=== PATIENT | female | born 1990 | race Caucasian/White ===

== ENCOUNTER 2019-09-01 12:30 | Outpatient (RCR) | payer BC, SELFPAY ==
--- NOTE | 2019-08-04 11:21 | PTOPEVAL ---
PHYSICAL THERAPY EVALUATION AND PLAN OF CARE Thank you for referring this patient to [facility]. I recommend Anabell be seen in physical therapy 1-2x/week for up to 4 weeks. Please review, sign, date and return this plan of care CHANTAL. I agree with and certify that the following plan of care is medically necessary. Referring Physician Date Attending Provider: Prem Ashby MD Evaluation Diagnosis right ankle ORIF Onset 06/01/2019 Cause fall Subjective Information Eva is here today 8 weeks Query Text:As Reported By Patient/ after right ankle fracture ( Family distal fibular fracture). She had ORIF of right ankle a week after fall. She is off boot and crutches at this point. Pain Assessment Right Ankle Reported Pain Level 4 Pain Description Aching Pain Frequency Chronic,Intermittent Current Pain Intensity 4 Lowest Pain Intensity 0 Greatest Pain Intensity 5 Pain Aggravating Factors Stair Climbing,Walking,Weight Bearing/Standing Ankle/Foot Range of Motion Right Ankle Dorsiflextion With Knee Extension 2 Range of Motion - Active Ankle Plantarflexion Range of Motion - 59 Active Query Text: Ankle Eversion Range of Motion - Active 8 Ankle Inversion Range of Motion - Active 41 Hip Strength Right Hip Flexion Strength 4 Good Hip Extension Strength 4- Good - Hip Abduction Strength 3+ Fair + Knee Strength Right Knee Flexion Strength 4+ Good + Knee Extension Strength 4+ Good + Ankle Strength Right Ankle Dorsiflexion Strength 4+ Good + Ankle Plantarflexion Strength 4 Good Ankle Eversion Strength 4+ Good + Ankle Inversion Strength 4+ Good + Ankle Strength Comments mild tenderness to PF MMT Palpation Assessment no trigger points noted; non- tender over incision site Balance Assessment Balance Comment SLS: [id number] each side, increased LOB on R Gait Assessment Gait Pattern Trendelenburg Gait Gait Pattern Observed Trunk Lateral Lean - Right Other Gait Observations very mild right lateral trunk lean during gait Stair Climbing Assessment Stair Climbing Assistive Devices None Weight Bearing Status - Left Full Weight Bearing Status - Right Full Technique Alternating Steps Stair Climbing Direction Both Up and Down Stair Climbing Ability Independent Clinical Summary Eva is here today 8 weeks s/p
--- NOTE | 2019-08-18 10:32 | PCPTNOTE ---
Patient did not show up for scheduled appointment this date.
--- NOTE | 2019-08-20 13:53 | PCPTNOTE ---
Patient called & cancelled scheduled appointment this date due to not having a sitter.
--- NOTE | 2019-09-03 13:53 | PCPTNOTE ---
Patient was called & cancelled scheduled appointment this date due to insurance authorization
--- NOTE | 2019-09-08 12:49 | PCPTNOTE ---
Patient did not show up for scheduled appointment this date.
--- NOTE | 2019-09-10 15:00 | PCPTNOTE ---
Patient did not show up for scheduled appointment this date.
== END 2019-09-30 14:40 | disposition home or self-care (01) ==
LOC: ANHPT 12:30
PROVIDERS: Visit Provider Orthopaedic Surgery
DX: S82.61XD Displaced fracture of lateral malleolus of right fibula, subsequent encounter for closed fracture with routine healing (principal)
CPT/HCPCS: 97110; 97140; 97161

== ENCOUNTER 2019-11-23 15:49 | Emergency (ER) | payer BC, OTHER, SELFPAY ==
--- NOTE | 2019-11-23 15:52 | ED.GENADULT ---
HPI - General Adult General Chief complaint: Upper Respiratory Infection Stated complaint: sore throat/cough Time Seen by Provider: 11/23/19 15:51 Source: patient Mode of arrival: ambulatory Limitations: no limitations History of Present Illness HPI narrative: 29-year-old female patient presents to the [facility] with complaints of sore throat and left ear pain x2 days. Denies any fever. Patient states her left ear has been hurting and today noticed a sore throat. Patient states that she does get chronic strep throat last time she had strep throat was last year. Patient denies any runny nose, sneezing or coughing. Patient denies any chest pain or shortness of breath. Denies or breast-feeding Related Data Allergies Allergy/AdvReac Type Severity Reaction Status Date / Time No Known Allergies Allergy Verified 08/26/19 08:42 Review of Systems Review of Systems: Narrative: CONSTITUTIONAL: Denies fever, chills, or sweats. EYES: Denies visual changes, redness, or discharge. ENT: Denies rhinorrhea, congestion, positive sore throat and left otalgia. CARDIOVASCULAR: Denies chest pain, palpitations, or edema. RESPIRATORY: Denies cough or dyspnea. GASTROINTESTINAL: Denies abdominal pain, nausea, vomiting, or diarrhea. GENITOURINARY: Denies dysuria or hematuria. SKIN: Denies rash or itching. MUSCULOSKELETAL: Denies back pain, joint pain, or myalgia. NEUROLOGIC: Denies headache, numbness, or weakness. PSYCHIATRIC: Denies anxiety or depression. [facility] Past Medical History Medical History Ankle fracture, right Surgical History Surgical History Fracture of right ankle, lateral malleolus ORIF May 2019 Family History Family History Father Diabetes mellitus Heart disease Mother Hypertension Cerebrovascular accident Social History Social History Smoking status: Current every day smoker Additional smoking assessment comments: Smoker since 2010; currently a vaper Alcohol intake: current Additional living arrangements comments: With 4 year old son Gender identity (if verbalized by the patient): Female Comments At the time of my signature I agree with nursing past medical history, surgical, social, and family history. There is no relevant family history pertinent to the presenting complaint. Exam Narrative: Exam Narrative: GENERAL: Well-appearing, well-nourished, and in no acute distress. HEAD: Normocephalic, atraumatic. No tenderness noted to frontal or maxillary sinuses on palpation EYES: PERRLA and EOMI. ENT: Nares clear, no rhinorrhea or epistaxis. Mucous membranes moist. Posterior pharynx with 2+ tonsil enlargement and tonsil stones noted to bilateral sides. There is erythema noted. The left ear does appear to have some fluid behind it as well as some bulging and erythema. NECK: Supple. No lymphadenopathy CHEST: Clear to auscultation. No respiratory distress. HEART: Regular rate and rhythm. No murmur heard. Normal peripheral pulses. ABDOMEN: Soft, nontender, nondistended, normal active bowel sounds. EXTREMITIES: Normal range of motion. No edema. SKIN: Warm, dry, no rash. NEURO: No focal deficits. Alert and oriented x3. Course Reevaluation(s) Reevaluation #1: Reevaluated patient. Discussed with her that her strep test today is negative however does appear that she is got an ear infection left ear. Discussed with her that we will discharge her home with some antibiotics for the ear infection that if her strep culture does come back positive the antibiotics that we gave her today should cover that as well. Patient verbalized understanding denies any other questions or concerns at this time. Date: 11/23/19 Time: 16:13 Vital Signs Vital signs: Vital Signs Temperature 36.9 C
[2019-11-23 15:55] VITALS: BP 137/81; PULSE 62; RESP 14; TEMP 36.9; O2SAT 100
== END 2019-11-23 16:19 | disposition home or self-care (01) ==
PROVIDERS: Emergency Provider Nurse Practitioner Family
DX: H66.92 Otitis media, unspecified, left ear (principal); J02.9 Acute pharyngitis, unspecified
CPT/HCPCS: 87081; 87880; 99213; G0463

== ENCOUNTER 2020-01-21 13:32 | Emergency (ER) | payer BC, OTHER, SELFPAY ==
[2020-01-21 13:36] VITALS: BP 129/81; PULSE 87; RESP 20; TEMP 36.9; O2SAT 100
--- NOTE | 2020-01-21 13:38 | ED.URI ---
HPI - URI/Sore Throat General Chief Complaint: Upper Respiratory Infection Stated Complaint: sore throat/ear itching Time Seen by Provider: 01/21/20 13:50 Source: patient and RN notes reviewed Mode of arrival: ambulatory Limitations: no limitations History of Present Illness HPI Narrative: 29-year-old female presents with concern for sore throat, left swollen tonsil, exudate on her tonsils. Reports symptoms started yesterday. Reports in October she had similar symptoms, ear pain and was treated with amoxicillin. She denies fever, body aches, cough, shortness of breath, nasal congestion, rhinorrhea. MD elicited complaint: sore throat Related Data Allergies Allergy/AdvReac Type Severity Reaction Status Date / Time No Known Allergies Allergy Verified 01/21/20 13:45 Review of Systems Review of Systems: Narrative: CONSTITUTIONAL: Denies malaise, chills, sweats, or fever. EYES: Denies visual changes, redness, or discharge. ENT: Denies rhinorrhea, congestion, sinus pain, otalgia. Reports swollen tonsil, sore throat. CARDIOVASCULAR: Denies chest pain, palpitations, or edema. RESPIRATORY: Denies cough or dyspnea. GASTROINTESTINAL: Denies abdominal pain, nausea, vomiting, diarrhea SKIN: Denies rash or itching. MUSCULOSKELETAL: Denies myalgia. NEUROLOGIC: Denies headache. All systems reviewed & are unremarkable except as noted in HPI and below PMFSH Social History Social History Smoking status: Current every day smoker Additional smoking assessment comments: Smoker since 2010; currently a vaper Alcohol intake: current Additional living arrangements comments: With 4 year old son Gender identity (if verbalized by the patient): Female Comments At time of signature, agree with nursing past medical, surgical, social and family history. There is no relevant family history pertinent to the presenting complaint Exam Narrative: Exam Narrative: GENERAL: Well-appearing, well-nourished, and in no acute distress. HEAD: Normocephalic EYES: PERRLA, conjunctivae clear ENT: Nares clear, turbinates clear, no discharge. Mucous membranes moist. TM pearly van with sharp light reflex bilaterally; left tragal tenderness with auditory canal erythema and edema. Oropharynx erythematous without lesions. Tonsils enlarged and with purulent exudate, no drooling, no hoarseness, no trismus, uvula midline. NECK: Supple. No lymphadenopathy CHEST: Clear to auscultation, breath sounds equal. No wheezing, rhonchi, rales, or stridor. No respiratory distress, speaks in full sentences. HEART: Regular rate and rhythm. No murmur heard. SKIN: Warm, dry, no rash. NEURO: Alert and oriented x3. PSYCH: Normal mood and affect Course Course Emergency Course: Patient is aware of diagnosis, understands and agrees to treatment plan. Anticipatory guidance given. Patient agrees to follow-up as directed and is aware of reasons to seek care at the emergency department. Portions of this record may have been created with voice recognition software Vital Signs Vital signs: Vital Signs Temperature 98.4 F 01/21/20 13:36 Pulse Rate 87 01/21/20 13:36 Respiratory Rate 20 01/21/20 13:36 Blood Pressure 129/81 01/21/20 13:36 Pulse Oximetry 100 01/21/20 13:36 Temperature 98.4 F 01/21/20 13:36 Pulse Rate 87 01/21/20 13:36 Respiratory Rate 20 01/21/20 13:36 Blood Pressure 129/81 01/21/20 13:36 Pulse Oximetry 100 01/21/20 13:36 Reviewed. Patient has been instructed to follow up with her primary care provider within the next week regarding her elevated blood pressure today. MDM - URI/Sore Throat MDM Narrative Medical decision making narrative: Differential diagnosis considered: Cano virus, strep pharyngitis, allergic rhinitis, upper respiratory tract infection, sinusitis, rhinosinusitis, nasopharyngitis. viral pharyngitis, otitis media, otitis externa, pneumonia, bronchitis, viral cough syndro
== END 2020-01-21 14:04 | disposition home or self-care (01) ==
PROVIDERS: Emergency Provider Nurse Practitioner
DX: J03.90 Acute tonsillitis, unspecified (principal); H60.502 Unspecified acute noninfective otitis externa, left ear; F17.200 Nicotine dependence, unspecified, uncomplicated
CPT/HCPCS: 87081; 87880; 99213; G0463

== ENCOUNTER 2022-02-06 10:24 | Emergency (ER) | payer OTHER, SELFPAY ==
[2022-02-06 10:36] VITALS: BP 124/80; PULSE 87; RESP 20; TEMP 36.9; O2SAT 100
--- NOTE | 2022-02-06 10:47 | ED.EYEPROB ---
HPI - Eye Problem General Chief complaint: Eye Problems Stated complaint: Eye Swelling Time Seen by Provider: 02/06/22 10:47 Source: patient Mode of arrival: ambulatory Limitations: no limitations History of Present Illness HPI Narrative: 31 y/o female presented for c/o left eye swelling since yesterday. Endorses mild itching and drainage, and states she feels 'soreness.' Denies photophobia, foreign body sensation, or vision changes. Has been taking benadryl and allergy meds for recent URI. Denies current sinus congestion, ear pain, headache, fever/chills. chief complaint: eye pain Related Data Allergies Allergy/AdvReac Type Severity Reaction Status Date / Time No Known Allergies Allergy Verified 02/06/22 10:50 Review of Systems Review of Systems: CONSTITUTIONAL: Denies body aches, fever, chills EYES:Endorses swelling to left eye ENT: Denies rhinorrhea, congestion, sore throat, or otalgia. CARDIOVASCULAR: Denies chest pain, palpitations RESPIRATORY: Denies cough or dyspnea. SKIN: Denies rash, itching, or wounds. MUSCULOSKELETAL: Denies back pain, joint pain, or myalgia. NEUROLOGIC: Denies headache, numbness, tingling, or weakness. All systems reviewed & are unremarkable except as noted in HPI and below PMFSH Past Medical History Medical History Ankle fracture, right Surgical History Surgical History Fracture of right ankle, lateral malleolus ORIF May 2019 Family History Family History Father Diabetes mellitus Heart disease Mother Hypertension Cerebrovascular accident Social History Social History Smoking status: Current every day smoker Additional smoking assessment comments: Smoker since 2010; currently a vaper Alcohol intake: current Alcohol use details: Occasional Additional living arrangements comments: With 4 year old son Gender identity (if verbalized by the patient): Female Comments At time of signature, I have reviewed and agree with nursing past medical, surgical, social and family history unless otherwise noted. Please see nursing chart for further information. There is no relevant family history pertinent to the presenting complaint Exam Narrative: GENERAL: Well-appearing HEAD: Normocephalic, atraumatic. EYES: Mild left lower eye lid swelling; No bruising, conjunctival injection, stye, or discharge. EOMI. Lid eversion showed no foreign body ENT: Mucous membranes pink and moist. No rhinorrhea. TMs normal bilaterally. CHEST: Clear to auscultation. HEART: Regular rate and rhythm. SKIN: Warm, dry, no rash. Normal skin turgor. NEURO: No focal deficits. Alert and oriented x3 Course Course Emergency Course: Patient is aware of diagnosis, understands and agrees to treatment plan. Anticipatory guidance given. Patient agrees to follow-up as directed and is aware of reasons to seek care at the emergency department. Portions of this record may have been created with voice recognition software Level of Care: Express Care Visit Vital Signs Vital signs: Vital Signs Temperature 98.4 F 02/06/22 10:36 Pulse Rate 87 02/06/22 10:36 Respiratory Rate 20 02/06/22 10:36 Blood Pressure 124/80 02/06/22 10:36 Pulse Oximetry 100 02/06/22 10:36 Oxygen Delivery Room Air 02/06/22 10:36 Temperature 98.4 F 02/06/22 10:36 Pulse Rate 87 02/06/22 10:36 Respiratory Rate 20 02/06/22 10:36 Blood Pressure 124/80 02/06/22 10:36 Pulse Oximetry 100 02/06/22 10:36 Oxygen Delivery Room Air 02/06/22 10:36 MDM - Eye Problem MDM Narrative Medical decision making narrative: Advised supportive measures, if sx worsen and she notices drainage she can take the abx, as she does not have a pcp to f/u. signs/symptoms review
== END 2022-02-06 11:05 | disposition home or self-care (01) ==
PROVIDERS: Emergency Provider Nurse Practitioner Family
DX: H05.012 Cellulitis of left orbit (principal); F17.290 Nicotine dependence, other tobacco product, uncomplicated
CPT/HCPCS: 99213; G0463

== ENCOUNTER 2022-08-30 09:55 | Outpatient (CLI) | payer OTHER, SELFPAY ==
--- NOTE | ~2022-08-30 | US_ITS ---
EXAMINATION: US pelvic complete w TV DATE: 08/30/2022 10:40 INDICATION: Pelvic and perineal pain TECHNIQUE: Multiple transabdominal and endovaginal sonographic images of the pelvis were obtained. COMPARISON: None. FINDINGS: The uterus measures 8.9 x 4.7 x 3.7 cm. The endometrial complex measures 4 mm. An IUD is pr esent in expected position. The right ovary measures 2.8 x 1.7 x 1.5 cm. The left ovary measures 2.1 x 2.4 x 2.5 cm. There is normal vascular flow in the ovaries. There is no free fluid in the pelvis. IMPRESSION: 1. No sonographic correlate for the patient's symptoms. Reviewed, dictated and finalized at location B.
== END 2022-08-30 09:56 | disposition home or self-care (01) ==
PROVIDERS: Visit Provider Obstetrics & Gynecology
DX: R10.2 Pelvic and perineal pain (principal)
CPT/HCPCS: 76830; 76856

== ENCOUNTER 2024-02-08 15:18 | Outpatient (CLI) | payer OTHER, SELFPAY ==
--- NOTE | ~2024-02-08 | US_ITS ---
EXAMINATION: US OB <=14 wk fetus w TV DATE: 02/08/2024 16:20 INDICATION: Amenorrhea with positive test TECHNIQUE: Real-time pelvic ultrasound utilizing both a transvaginal and transabdominal probe was pe rformed. The interpreting radiologist was not present for the study. COMPARISON: None. FINDINGS: The uterus measures 10.9 x 4.0 x 6.7 cm. There is an intrauterine gestational sac. A yolk sac and fe sandy pole are identified. The crown rump length measures 9 mm, which correlates with an estimated gest ational age of 7 weeks and 0 days. heart motion is identified measuring 122 beats per minute (b pm) by M-mode Doppler. The right ovary measures 2.1 x 1.7 x 1.5 cm. The left ovary measures 2.5 x 2.1 x 2.1 cm. Vascular black w identified at both ovaries on color Doppler. There is no free fluid in the pelvis. IMPRESSION: 1. Single living fetus with heart rate of 122 bpm. 2. Gestational age by ultrasound of 7 weeks 0 day(s) +/- 4 day(s) with ultrasound estimated date of delivery (ROLF) of 09/22/2024. Reviewed, dictated and finalized at location B. IMPRESSION: 1. Single living fetus with heart rate of 122 bpm. 2. Gestational age by ultrasound of 7 weeks 0 day(s) +/- 4 day(s) with ultraso und estimated date of delivery (ROLF) of 09/22/2024.
== END 2024-02-08 15:19 | disposition home or self-care (01) ==
LOC: ANHIMG 15:19
PROVIDERS: Visit Provider Nurse Practitioner Obstetrics & Gynecology
DX: N91.2 Amenorrhea, unspecified (principal); Z3A.01 Less than 8 weeks gestation of pregnancy
CPT/HCPCS: 76801; 76817

== ENCOUNTER 2024-04-02 09:20 | Outpatient (CLI) | payer MEDICAID, SELFPAY ==
[2024-04-02 10:16] LABS: Basophils Absolute Auto 0.1 K/mm3 (0.0-0.1); Basophils Percent Auto 0.5 % (0.2-1.2); Eosinophils Absolute Auto 0.1 K/mm3 (0-0.3); Eosinophils Percent Auto 1.2 % (0-4.4); Hematocrit 43.5 % (37.0-47.0); Hemoglobin 14.5 g/dL (12.0-15.0); Immature Granulocyte Absolute 0.11 K/mm3 (0.00-0.031); Lymphocytes Absolute Auto 1.81 K/mm3 (0.9-3.2); Mean Corpuscular HGB Conc 33.3 g/dl (32-36); Mean Corpuscular Hemoglobin 29.5 pg (26-34); Mean Corpuscular Volume 88.6 fl (80-100); Monocytes Absolute Auto 0.6 K/mm3 (0.1-0.6); Monocytes Percent Auto 5.4 % (2.6-8.5); Neutrophils Absolute Auto 8.6 K/mm3 (1.3-6.7); Neutrophils Percent Auto 75.9 % (45.5-73.1); Platelet Count Result 276 k/mm3 (150-375); Red Blood Count 4.91 M/mm3 (4.2-5.4); Red Cell Distribution Width 12.6 % (11.5-14.5); White Blood Count 11.3 K/mm3 (4.5-10.0)
[2024-04-02 10:37] LABS: Add Urine Microscopic? YES; Appearance Urine Turbid (Clear); Bacteria Urine 1+ /hpf; Bilirubin Urine Negative (Negative); Blood Urine Negative (Negative); Color Urine Yellow (Yellow); Glucose Urine UA Negative (Negative); Ketones Urine Negative (Negative); Leukocyte Esterase Ur Negative LEU/UL (Negative); Nitrate Urine Negative (Negative); Non Pathogenic Casts 0-2; Protein Urine Negative (Negative); Specific Grav Ur 1.017 (1.001-1.035); Squamous Epithelial Cell Urine Occasional /hpf (Few); Urobilinogen Urine 0.2 mg/dL (<2.0); WBC Urine 0-5 /hpf (0-3); pH Urine 7.5 (5.0-9.0)
[2024-04-02 11:05] LABS: Rapid Plasma Reagin Non-Reactive (NonReactive)
[2024-04-02 11:07] LABS: HIV 1/2 Ab P24 Ag Result Negative (Negative)
[2024-04-02 11:14] LABS: Hepatitis B Surface Antigen Negative (Negative); Rubella IgG Antibody 14.4 IU/ML
[2024-04-02 11:24] LABS: Hepatitis C Virus Antibody Negative (Negative)
[2024-04-03 14:49] LABS: Varicella IgG Antibody 4.21 S/CO
[2024-04-03 19:05] LABS: Hematocrit 43.2 % (35.0-45.0); Hemoglobin 14.5 g/dL (11.7-15.5); MCH 29.9 pg (27.0-33.0); MCV 89.1 fL (80.0-100.0); RDW 12.7 % (11.0-15.0); Red Blood Cell Count 4.85 Million/uL (3.80-5.10)
== END 2024-04-02 09:21 | disposition home or self-care (01) ==
PROVIDERS: Visit Provider Obstetrics & Gynecology
DX: Z34.91 Encounter for supervision of normal pregnancy, unspecified, first trimester (principal); Z3A.09 9 weeks gestation of pregnancy
CPT/HCPCS: 36415; 81001; 83021; 85025; 86592; 86703; 86762; 86787; 86803; 86850; 86900; 86901; 87086; 87340; G0432

== ENCOUNTER 2024-06-19 10:30 | Outpatient (CLI) | payer OTHER, SELFPAY ==
[2024-06-19 12:00] LABS: Basophils Absolute Auto 0.1 K/mm3 (0.0-0.1); Basophils Percent Auto 0.4 % (0.2-1.2); Eosinophils Absolute Auto 0.1 K/mm3 (0-0.3); Eosinophils Percent Auto 0.9 % (0-4.4); Hematocrit 38.7 % (37.0-47.0); Hemoglobin 12.9 g/dL (12.0-15.0); Immature Granulocyte Absolute 0.13 K/mm3 (0.00-0.031); Lymphocytes Absolute Auto 2.06 K/mm3 (0.9-3.2); Lymphocytes Percent Auto 15.5 % (18.3-44.2); Mean Corpuscular HGB Conc 33.3 g/dl (32-36); Mean Corpuscular Hemoglobin 29.5 pg (26-34); Mean Corpuscular Volume 88.4 fl (80-100); Mean Platelet Volume 9.4 fl (7.4-10.4); Monocytes Absolute Auto 0.7 K/mm3 (0.1-0.6); Monocytes Percent Auto 5.2 % (2.6-8.5); Neutrophils Absolute Auto 10.2 K/mm3 (1.3-6.7); Platelet Count Result 305 k/mm3 (150-375); Red Blood Count 4.38 M/mm3 (4.2-5.4); Red Cell Distribution Width 12.2 % (11.5-14.5); White Blood Count 13.3 K/mm3 (4.5-10.0)
[2024-06-19 12:11] LABS: Glucose 1 Hour PP 50gm Dose 118 mg/dL
== END 2024-06-19 10:31 | disposition home or self-care (01) ==
LOC: ANHLAB 10:31
PROVIDERS: Visit Provider Nurse Practitioner Obstetrics & Gynecology
DX: Z34.90 Encounter for supervision of normal pregnancy, unspecified, unspecified trimester (principal); Z3A.00 Weeks of gestation of pregnancy not specified
CPT/HCPCS: 36415; 82947; 85025

== ENCOUNTER 2024-08-04 09:12 | Outpatient (CLI) | payer OTHER, SELFPAY ==
[2024-08-04 09:59] LABS: Hematocrit 37.2 % (37.0-47.0); Hemoglobin 12.7 g/dL (12.0-15.0); Mean Corpuscular HGB Conc 34.1 g/dl (32-36); Mean Corpuscular Hemoglobin 29.7 pg (26-34); Mean Corpuscular Volume 87.1 fl (80-100); Mean Platelet Volume 9.7 fl (7.4-10.4); Platelet Count Result 281 k/mm3 (150-375); Red Blood Count 4.27 M/mm3 (4.2-5.4); Red Cell Distribution Width 12.4 % (11.5-14.5); White Blood Count 11.5 K/mm3 (4.5-10.0)
--- OUTSIDE RECORDS SUMMARY | 2024-08-04 10:14 | XMS_ITS | Referral Summary ---
Author Organization [facility] Address [address] [place] [address] Care Team Providers Care Utility Sales And Service Manager Name Role Phone No, Physician Primary Care Provider [phone] Allergies No known active allergies Medications hydrOXYzine (VISTARIL) 25 mg capsule Take 1 capsule (25 mg total) by mouth 3 (three) times a day as needed for itching for up to 10 days 30 capsule 03/27/2023 Active Social History Tobacco Use Types Packs/Day Years Used Date Smoking Tobacco: Never Assessed Personal Safety Answer Date Recorded Getting School Help Needed Not on file 07/29 Comments Unknown Sex and Gender Information Value Date Recorded Sex Assigned at Not on file Legal Sex Female 5:19 AM CDT Gender Identity Not on file Sexual Orientation Not on file Last Filed Vital Signs Vital Sign Reading Time Taken Comments Blood Pressure 115/78 03/27/2023 10:00 AM CDT Pulse 69 03/27/2023 10:00 AM CDT Temperature 37 C (98.6 F) 03/27/2023 5:23 AM CDT Respiratory Rate 16 03/27/2023 5:23 AM CDT Oxygen Saturation 98% 03/27/2023 10:00 AM CDT Inhaled Oxygen Concentration - - Weight 90.7 kg (200 lb) 03/27/2023 5:23 AM CDT Height 167.6 cm (5' 6 ) 03/27/2023 5:23 AM CDT Body Mass Index 32.28 03/27/2023 5:23 AM CDT Plan of Treatment Not on file Insurance [facility] [employer] [id number] Care Teams Utility Sales And Service Manager Relationship Specialty Start Date End Date No, Physician PCP - General 03/27/23
--- OUTSIDE RECORDS SUMMARY | 2024-08-04 10:14 | XMS_ITS | Encounter Summary ---
Author Organization [facility] Address [address] [place] [address] Care Team Providers Care Produce Clerk Name Role Phone Unavailable Primary Care Provider Unavailabl e Encounter Details Date Type Department Care Team (Late st Contact Info) Description 08/02/2024 External Device Data [facility] ABSTRACTION Provider, Abstract NO ADDRESS ON FILE Social History Tobacco Use Types Packs/Day Years Used Date Smoking Tobacco: Never Assessed Comments Unknown Sex and Gender Information Value Date Recorded Sex Assigned at Not on file Legal Sex Female 3:38 PM [employer] Gender Identity Not on file Sexual Orientation Not on file documented as of this encounter Plan of Treatment Upcoming Encounters Date Type Department Care Team (Late st Contact Info) Description 08/11/2024 9:[address] [facility] [place] [address] [place] [address] Ranulfo Skinner MD [address] [facility] [address] [place] [address] documented as of this encounter Visit Diagnoses Not on filedocumented in this encounter
--- OUTSIDE RECORDS SUMMARY | 2024-08-04 10:15 | XMS_ITS | Clinical Summary ---
Author Organization [facility] Address [address] [place] [phone] Phone Care Team Providers Care Route Driver Salesperson Name Role Phone Unavailable Primary Care Provider Unavailabl e Encounters Date Type Department Care Team Description 08/02/2024 External Device Data STL ABSTRACTION Provider, Abstract 08/01/2024 External Device Data STL ABSTRACTION Provider, Abstract 07/29/2024 External Device Data STL ABSTRACTION Provider, Abstract 07/15/2024 External Device Data STL ABSTRACTION Provider, Abstract 06/19/2024 External Device Data STL ABSTRACTION Provider, Abstract 06/18/2024 External Device Data STL ABSTRACTION Provider, Abstract 06/17/2024 External Device Data STL ABSTRACTION Provider, Abstract 06/10/2024 External Device Data STL ABSTRACTION Provider, Abstract 05/29/2024 12:45 PM RN TRANSITION - 05/29/2024 11:59 PM RN TRANSITION Hospital Encounter [facility] [address] [place] [address] Purvi Meléndez MD Discharge Disposition: Home or Self Care 05/06/2024 External Device Data STL ABSTRACTION Provider, Abstract from Last 3 Months Social History Tobacco Use Types Packs/Day Years Used Date Smoking Tobacco: Never Assessed Comments Unknown Sex and Gender Information Value Date Recorded Sex Assigned at Not on file Legal Sex Female 3:38 PM RN TRANSITION Gender Identity Not on file Sexual Orientation Not on file Plan of Treatment Upcoming Encounters Date Type Department Care Team (Late st Contact Info) Description 08/11/2024 9:00 AM CDT Appointment [facility] [address] [place] [address] Ranulfo Hebert MD [address] [place] [id number] Health Maintenance Due Date Last Done Comments DTAP/TDAP/TD VACCINES (1 - Tdap) 2011 HEPATITIS B VACCINES (1 of 3 - 19+ 3-dose series) 2011 Preventative Visit-Managed Medicaid 2011 CERVICAL CANCER SCREENING 2022 INFLUENZA VACCINE (#1) 2023 HPV VACCINES Aged Out No longer eligi ble based on patient's age to complete this topic Procedures Procedure Name Priority Date/Time Associated Diagnosis Comments US OB FOLLOW UP PER FETUS Routine 05/29/2024 1:21 PM RN TRANSITION Choroid plexus cyst Obesity (BMI 30-39.9) from Last 3 Months Results * US OB FOLLOW UP PER FETUS (05/29/2024 1:21 PM RN TRANSITION) Anatomical Region Laterality Modality Pelvis Ultrasound 05/29/2024 12:5 1 PM RN TRANSITION Narrative 05/29/2024 1:26 PM RN TRANSITION STL FOLLOW UP ----- Pat. Name: JADA LEVY Study Date: 05/29/2024 12:51pm Pat. NO: [id number] Referring MD: RANULFO HEBERT MD Site: [place] Det[employer] Officer: Gosia Yanes RDMS : 1990 Age: 33 ----- INDICATION ----- Maternal Obesity (BMI<40) Complicating Screening, Other Specified CODING ----- Diagnoses Z3A.22: Weeks of gestation Z36.89: Encounter to establish gestational age using ultrasound O99.212: Obesity complicating Procedures 44264: Ultrasound, uterus, real time with image documentation, follow up, transabdominal approach per fetus MATERNAL ASSESSMENT ----- Physical Exam Initial weight 85 kg, 188 lb. Initial BMI 30.34 kg/m METHOD ----- Transabdominal ultrasound examination ----- Wright . Number of fetuses: 1 DATING ----- GA by prior assessment 22 w + 6 d ROLF by prior assessment: 09/26/2024 Ultrasound examination on: 05/29/2024 GA by U/S based upon: AC, BPD, EFW, Femur, HC GA by U/S 23 w + 3 d ROLF by U/S: 09/22/2024 Method of dating: Restore dating from previous exam Assigned: based on stated ROLF, selected on 05/01/2024 Assigned GA 22 w + 6 d Assigned ROLF: 09/26/2024 BIOMETRY ----- BPD 56.8 mm 23w 3d 65% Hadlock OFD 76.0 mm 25w 0d 96% Brigid HC 213.8 mm 23w 3d 60% Hadlock AC 186.9 mm 23w 3d 62% Hadlock Femur 41.3 mm 23w 3d 57% Hadlock HC / AC 1.14 45% Nicolaides Weight Calculation: EFW 595 g 23w 2d 70% Hadlock EFW (lb,oz) 1 lb 5 oz EFW by Hadlock ([id number]) Head / Face / Neck Biometry: Shell Assembler 4.4 mm Extremities / Bony Struc Biometry: FL / BPD 0.73 FL / HC 0.19 FL / AC 0.22 GENERAL EVALUATION ----- Cardiac activity present. FHR 150 bpm. movements: present. Presentation: cephalic Placenta: Placental site: posterior Umbilical cord: Cord vessels: 3 vessel cord. Insertion site: placental insertion: normal Amniotic fluid: Amount of AF: normal amount. MVP 4.4 cm ANATOMY ----- The following structures appear abnormal: Head / Neck Right choroid plexus: choroid plexus cyst. The following structures appear normal: Head / Neck Cranium. Lateral ventricles. Left choroid plexus. Midline falx. Cavum septi pellucidi. Cerebellum. Cisterna magna. Heart / Thorax 4-chamber view. RVOT view. LVOT view. Diaphragm. Abdomen Stomach. Kidneys. Bladder. Spine Cervical spine. Thoracic spine. Lumbar spine. Sacral spine. GROWTH OVERVIEW ----- Exam date GA BPD (mm) HC (mm) AC (mm) FL (mm) HL (mm) EFW (g) 05/01/2024 18w 6d 45.6 86% 164.9 60% 139.3 62% 31.2 73% 28.8 69% 295 80% 05/29/2024 22w 6d 56.8 65% 213.8 60% 186.9 62% 41.3 57% 595 70% COMMENT ----- Patient's name and date of were verified by the stave cutter prior to the exam IMPRESSION ----- 1. Single living fetus with a gestational age of 22w 6d, based on the reported clinical dates. 2. Current growth parameters are consistent with the stated EDC. The size is appropriate for gestational age at 70%percentile (595 g ). 3. Unremarkable limited anatomy noted. The previously suboptimally visualized anatomy (4CH, RVOT, diaphragm and spine) appears grossly normal. The anatomic survey is now complete. The previously noted OD GRINDER OPERATOR appear to be resolving. 4. The amniotic fluid is normal for gestational age (MVP:4.4 cm). 5. Posterior placenta. No previa/not low-lying. Recommendations: - Further ultrasounds based on clinical indication. - Recommend interval third trimester growth and anatomy at 32 weeks. Thank you for allowing us to participate in the care of this patient. Procedure Note Ester Headley MD - 05/29/2024 STL FOLLOW UP ----- Pat. Name:Toby LEVY Date:05/29/2024 12:51pm Pat. NO: [id number] MD:RANULFO HEBERT [facility]Gosia Yanes RDMS :1990Age:33 ----- INDICATION ----- Maternal Obesity (BMI<40) Complicating Screening, Other Specified CODING ----- Diagnoses Z3A.22: Weeks of gestation Z36.89: Encounter to establish gestational ageusing ultrasound O99.212: Obesity complicating Procedures 38988: Ultrasound, uterus, real time withimage documentation, follow up, transabdominal approach per fetus MATERNAL ASSESSMENT ----- Physical Exam Initial weight 85 kg, 188 lb. Initial BMI 30.34kg/m METHOD ----- Transabdominal ultrasound examination ----- Wright . Number of fetuses: 1 DATING ----- GA by prior [id number] w + 6 d ROLF by prior assessment:09/26/2024 Ultrasound examination on:05/29/2024 GA by U/S based upon:AC, BPD, EFW, Femur, HC GA by U/S23 w + 3 d ROLF by U/S:09/22/2024 Method of dating:Restore dating from previous exam Assigned:based on stated ROLF, selected on 05/01/2024 Assigned GA22 w + 6 d Assigned ROLF:09/26/2024 BIOMETRY ----- BPD 56.8 mm 23w 3d 65%Hadlock OFD 76.0 mm 25w 0d 96%Brigid HC 213.8 mm 23w 3d 60%Hadlock AC 186.9 mm 23w 3d 62%Hadlock Femur 41.3 mm 23w 3d 57%Hadlock HC / AC 1.14 45%Nicolaides Weight Calculation: EFW 595 g 23w 2d 70%Hadlock EFW (lb,oz) 1 lb 5 oz EFW by Hadlock ([id number]) Head / Face / Neck Biometry: Shell Assembler 4.4mm Extremities / Bony Struc Biometry: FL / BPD 0.73 FL / HC 0.19 FL / AC 0.22 GENERAL EVALUATION ----- Cardiac activity present. FHR 150 bpm. movements: present.Presentation: cephalic Placenta: Placental site: posterior Umbilical cord: Cord vessels: 3 vessel cord. Insertion site: placentalinsertion: normal Amniotic fluid: Amount of AF: normal amount. MVP 4.4 cm ANATOMY ----- The following structures appear abnormal: Head / Neck Right choroid plexus: choroid plexus cyst. The following structures appear normal: Head / Neck Cranium. Lateral ventricles. Left choroid plexus.Midline falx. Cavum septi pellucidi. Cerebellum. Cisterna magna. Heart / Thorax 4-chamber view. RVOT view. LVOT view. Diaphragm. Abdomen Stomach. Kidneys. Bladder. Spine Cervical spine. Thoracic spine. Lumbar spine.Sacral spine. GROWTH OVERVIEW ----- Exam date GA BPD (mm) HC (mm) AC (mm) FL(mm) HL (mm) EFW (g) 05/01/2024 18w 6d 45.6 86% 164.9 60% 139.3 62%31.2 73% 28.8 69% 295 80% 05/29/2024 22w 6d 56.8 65% 213.8 60% 186.9 62%41.3 57% 595 70% COMMENT ----- Patient's name and date of were verified by the stave cutter prior tothe exam IMPRESSION ----- 1. Single living fetus with a gestational age of 22w 6d, based on thereported clinical dates. 2. Current growth parameters are consistent with the stated EDC. The fetalsize is appropriate for gestational age at 70%percentile (595 g ). 3. Unremarkable limited anatomy noted. The previously suboptimallyvisualized anatomy (4CH, RVOT, diaphragm and spine) appears grossly normal. The anatomic survey is now complete. Thepreviously noted OD GRINDER OPERATOR appear to be resolving. 4. The amniotic fluid is normal for gestational age (MVP:4.4 cm). 5. Posterior placenta. No previa/not low-lying. Recommendations: - Further ultrasounds based on clinical indication. - Recommend interval third trimester growth and anatomy at 32weeks. Thank you for allowing us to participate in the care of this patient. us Purvi Meléndez MD US ORDERABLES Final Result from Last 3 Months Insurance [employer] MEDICAID
--- OUTSIDE RECORDS SUMMARY | 2024-08-04 10:15 | XMS_ITS | Clinical Summary ---
Author Organization [facility] Address [address] [place] [address] Care Team Providers Care Notch Machine Operator Name Role Phone No, Physician Primary Care Provider [phone] Allergies No known active allergies Medications hydrOXYzine [...] 03/27/2023 5:23 AM CDT Plan of Treatment Health Maintenance Due Date Last Done Comments Cervical Cancer Screening 1992 Depression Screening 1992 Hepatitis C Screening 1992 DTaP/Tdap/Td Vaccine (1 - Tdap) 2003 Varicella Vaccines (1 of 2 - 13+ 2-dose series) 2005 Hepatitis B Screening 2010 Regular Well Visit/Exam 18-64 2010 Influenza Vaccine (#1) 2024 HPV Vaccines Aged Out No longer eligi ble based on patient's age to complete this topic Pneumococcal vaccine <65 Aged Out No longer eligible based on patient's age to complete this topic Insurance [facility] PL[employer] [id number] Care Teams Notch Machine Operator Relationship Specialty Start Date End Date No, Physician PCP - General 03/27/23
[2024-08-04 10:51] LABS: HIV 1/2 Ab P24 Ag Result Negative (Negative)
[2024-08-04 14:11] LABS: Syphilis IgG/IgM Antibody Negative (Negative)
== END 2024-08-04 09:13 | disposition home or self-care (01) ==
LOC: ANHLAB 09:14
PROVIDERS: Visit Provider Obstetrics & Gynecology
DX: Z34.90 Encounter for supervision of normal pregnancy, unspecified, unspecified trimester (principal)
CPT/HCPCS: 36415; 85027; 86593; 86703; G0432

== ENCOUNTER 2024-09-10 23:02 | Inpatient (IN) | payer BC, SELFPAY ==
[2024-09-10] VITALS (8 sets, daily range): PULSE 83–102; O2SAT 97–99; BMI 37.3
--- OUTSIDE RECORDS SUMMARY | 2024-09-10 23:19 | XMS_ITS | Clinical Summary ---
Author Organization [facility] Address [address] [place] [address] Phone Care Team Providers Care Camera Machinist Name Role Phone Unavailable Primary Care Provider Unavailabl e Encounters Date Type Department Care Team Description 08/26/2024 External Device Data STL ABSTRACTION Provider, Abstract 08/11/2024 8:52 AM CDT - 08/11/2024 11:59 PM CDT Hospital Encounter [facility] and [facility] [address] [place] [address] Ranulfo Hebert MD Discharge Disposition: Home or Self Care 08/02/2024 External Device Data STL ABSTRACTION Provider, [...] on file Legal Sex Female 3:38 PM [employer] HCM DEVELOPER Gender Identity Not on file Sexual Orientation Not on file Plan of Treatment Health Maintenance Due Date Last Done Comments DTAP/TDAP/TD VACCINES (1 - Tdap) 2011 HEPATITIS B VACCINES (1 of 3 - 19+ 3-dose series) 2011 Preventative Visit-Managed Medicaid 2011 HPV/Cotest (21-29) 2013 PAP SMEAR 2013 CERVICAL CANCER SCREENING 2022 HPV/Cotest (30-65) 2022 PAP SMEAR 2022 INFLUENZA VACCINE (#1) 2023 HPV VACCINES Aged Out No longer eligi ble based on patient's age to complete this topic Procedures Procedure Name Priority Date/Time Associated Diagnosis Comments US OB FOLLOW UP PER FETUS Routine 08/11/2024 9:09 AM CDT Excess weight gain in , second trimester Encounter for ultrasound to assess growth from Last 3 Months Results * US OB FOLLOW UP PER FETUS (08/11/2024 9:09 AM CDT) Anatomical Region Laterality Modality Pelvis Ultrasound 08/11/2024 8:52 AM CDT Narrative 08/11/2024 9:16 AM CDT STL FOLLOW UP ----- Pat. Name: JADA LEVY Study Date: 08/11/2024 8:52am Pat. NO: [id number] Referring MD: RANULFO HEBERT MD Site: [place] Baby Sitter: Gosia Yanes RDMS : 1990 Age: 34 ----- INDICATION ----- Maternal Obesity (BMI<40) Complicating Screening, Other Specified CODING ----- Diagnoses Z3A.33: Weeks of gestation Z36.89: Encounter to establish gestational age using ultrasound O99.213: Obesity complicating Procedures 90698: Ultrasound, uterus, real time with image documentation, follow up, transabdominal approach per fetus MATERNAL ASSESSMENT ----- Physical Exam Initial weight 85 kg, 188 lb. Initial BMI 30.34 kg/m METHOD ----- Transabdominal ultrasound examination ----- Wright . Number of fetuses: 1 DATING ----- GA by prior assessment 33 w + 3 d ROLF by prior assessment: 09/26/2024 Ultrasound examination on: 08/11/2024 GA by U/S based upon: AC, BPD, EFW, Femur, HC GA by U/S 34 w + 0 d ROLF by U/S: 09/22/2024 Method of dating: Restore dating from previous exam Assigned: based on stated ROLF, selected on 05/01/2024 Assigned GA 33 w + 3 d Assigned ROLF: 09/26/2024 BIOMETRY ----- BPD 84.3 mm 34w 0d 61% Hadlock OFD 107.5 mm 35w 4d 88% Brigid HC 309.2 mm 34w 4d 41% Hadlock AC 302.7 mm 34w 2d 75% Hadlock Femur 65.1 mm 33w 4d 43% Hadlock HC / AC 1.02 33% Nicolaides Weight Calculation: EFW 2,337 g 33w 6d 61% Hadlock EFW (lb,oz) 5 lb 2 oz EFW by Hadlock ([id number]) Extremities / Bony Struc Biometry: FL / BPD 0.77 FL / HC 0.21 FL / AC 0.22 GENERAL EVALUATION ----- Cardiac activity present. FHR 150 bpm. movements: present. Presentation: cephalic Placenta: Placental site: posterior, left Umbilical cord: Cord vessels: 3 vessel cord. Amniotic fluid: Amount of AF: normal amount. MVP 4.1 cm. ELISE 13.1 cm. Q1 3.5 cm, Q2 4.1 cm, Q3 2.2 cm, Q4 3.3 cm ANATOMY ----- The following structures appear normal: Head / Neck Cranium. Heart / Thorax Diaphragm. Abdomen Stomach. Kidneys. Bladder. GROWTH OVERVIEW ----- Exam date GA BPD (mm) HC (mm) AC (mm) FL (mm) HL (mm) EFW (g) 05/01/2024 18w 6d 45.6 86% 164.9 60% 139.3 62% 31.2 73% 28.8 69% 295 80% 05/29/2024 22w 6d 56.8 65% 213.8 60% 186.9 62% 41.3 57% 595 70% 08/11/2024 33w 3d 84.3 61% 309.2 41% 302.7 75% 65.1 43% 2,337 61% COMMENT ----- Patient's name and date of were verified by the school bus driver prior to the exam IMPRESSION ----- Impression: Wright viable intrauterine at 33w 3d in cephalic presentation. Estimated weight is 2337 g (61%ile) with abdominal circumference at the 75%ile. Amniotic fluid volume is normal amount (Amniotic fluid index = 13.1 cm, maximum vertical pocket = 4.1 cm). Recommendation: Follow up as clinically indicated. Thank you for inviting us to participate in your patient's care. Procedure Note Stefany Peace MD - 08/11/2024 STL FOLLOW UP ----- Pat. Name:Toby LEVY Date:08/11/2024 8:52am Pat. NO: [id number] :RANULFO HEBERT MD [facility]Gosia Yanes RDMS :1990Age:34 ----- INDICATION ----- Maternal Obesity (BMI<40) Complicating Screening, Other Specified CODING ----- Diagnoses Z3A.33: Weeks of gestation Z36.89: Encounter to establish gestational ageusing ultrasound O99.213: Obesity complicating Procedures 90555: Ultrasound, uterus, real time withimage documentation, follow up, transabdominal approach per fetus MATERNAL ASSESSMENT ----- Physical Exam Initial weight 85 kg, 188 lb. Initial BMI 30.34kg/m METHOD ----- Transabdominal ultrasound examination ----- Wright . Number of fetuses: 1 DATING ----- GA by prior w + 3 d ROLF by prior assessment:09/26/2024 Ultrasound examination on:08/11/2024 GA by U/S based upon:AC, BPD, EFW, Femur, HC GA by U/S34 w + 0 d ROLF by U/S:09/22/2024 Method of dating:Restore dating from previous exam Assigned:based on stated ROLF, selected on 05/01/2024 Assigned GA33 w + 3 d Assigned ROLF:09/26/2024 BIOMETRY ----- BPD 84.3 mm 34w 0d 61%Hadlock OFD 107.5 mm 35w 4d 88%Brigid HC 309.2 mm 34w 4d 41%Hadlock AC 302.7 mm 34w 2d 75%Hadlock Femur 65.1 mm 33w 4d 43%Hadlock HC / AC 1.02 33%Nicolaides Weight Calculation: EFW 2,337 g 33w 6d61% Hadlock EFW (lb,oz) 5 lb 2 oz EFW by Hadlock ([id number]) Extremities / Bony Struc Biometry: FL / BPD 0.77 FL / HC 0.21 FL / AC 0.22 GENERAL EVALUATION ----- Cardiac activity present. FHR 150 bpm. movements: present.Presentation: cephalic Placenta: Placental site: posterior, left Umbilical cord: Cord vessels: 3 vessel cord. Amniotic fluid: Amount of AF: normal amount. MVP 4.1 cm. ELISE 13.1 cm. Q13.5 cm, Q2 4.1 cm, Q3 2.2 cm, Q4 3.3 cm ANATOMY ----- The following structures appear normal: Head / Neck Cranium. Heart / Thorax Diaphragm. Abdomen Stomach. Kidneys. Bladder. GROWTH OVERVIEW ----- Exam date GA BPD (mm) HC (mm) AC (mm) FL(mm) HL (mm) EFW (g) 05/01/2024 18w 6d 45.6 86% 164.9 60% 139.3 62%31.2 73% 28.8 69% 295 80% 05/29/2024 22w 6d 56.8 65% 213.8 60% 186.9 62%41.3 57% 595 70% 08/11/2024 33w 3d 84.3 61% 309.2 41% 302.7 75%65.1 43% 2,337 61% COMMENT ----- Patient's name and date of were verified by the school bus driver prior tothe exam IMPRESSION ----- Impression: Wright viable intrauterine at 33w 3d in cephalicpresentation. Estimated weight is 2337 g (61%ile) with abdominal circumference atthe 75%ile. Amniotic fluid volume is normal amount (Amniotic fluid index = 13.1 cm,maximum vertical pocket = 4.1 cm). Recommendation: Follow up as clinically indicated. Thank you for inviting us to participate in your patient's care. us Ranulfo Hebert MD US ORDERABLES Final Result from Last 3 Months Insurance MEDICAID [place]
--- OUTSIDE RECORDS SUMMARY | 2024-09-10 23:19 | XMS_ITS | Referral Summary ---
Author Organization [facility] Address [address] [place] [address] Care Team Providers Care Chamber Walker Name Role Phone No, Physician Primary Care Provider [phone] Allergies No known active allergies Medications hydrOXYzine [...] Plan of Treatment Not on file Insurance [facility] PLAN [employer]EV [employer] [id number] Care Teams Chamber Walker Relationship Specialty Start Date End Date No, Physician PCP - General 03/27/23
--- OUTSIDE RECORDS SUMMARY | 2024-09-10 23:19 | XMS_ITS | Clinical Summary ---
Author Organization [facility] Address [address] [place] [address] Care Team Providers Care Manufacturing Engineering Technologist Name Role Phone No, Physician Primary Care Provider [phone] Allergies No known active allergies Medications hydrOXYzine [...] Regular Well Visit/Exam 18-64 2010 Influenza Vaccine (Season Ended) 2025 HPV Vaccines Aged Out No longer eligi ble based on patient's age to complete this topic Pneumococcal vaccine <65 Aged Out No longer eligible based on patient's age to complete this topic Insurance [facility] PL[employer] BEV [employer] [id number] Care Teams Manufacturing Engineering Technologist Relationship Specialty Start Date End Date No, Physician PCP - General 03/27/23
[2024-09-10 23:28] LABS: Basophils Percent Auto 0.2 % (0.2-1.2); Eosinophils Absolute Auto 0.1 K/mm3 (0-0.3); Eosinophils Percent Auto 0.9 % (0-4.4); Hematocrit 37.5 % (37.0-47.0); Hemoglobin 12.6 g/dL (12.0-15.0); Immature Granulocyte Absolute 0.09 K/mm3 (0.00-0.031); Immature Granulocyte Percent A 0.7 % (0-0.5); Lymphocytes Absolute Auto 2.09 K/mm3 (0.9-3.2); Lymphocytes Percent Auto 15.9 % (18.3-44.2); Mean Corpuscular HGB Conc 33.6 g/dl (32-36); Mean Corpuscular Hemoglobin 29.4 pg (26-34); Mean Corpuscular Volume 87.4 fl (80-100); Mean Platelet Volume 9.7 fl (7.4-10.4); Monocytes Absolute Auto 0.8 K/mm3 (0.1-0.6); Monocytes Percent Auto 6.1 % (2.6-8.5); Neutrophils Percent Auto 76.2 % (45.5-73.1); Platelet Count Result 285 k/mm3 (150-375); Red Blood Count 4.29 M/mm3 (4.2-5.4); White Blood Count 13.1 K/mm3 (4.5-10.0)
--- NOTE | 2024-09-10 23:41 | LDADM ---
This patient, Anabell Stevenson, was admitted to Labor/Delivery/Recovery 106 on 09/10/24 at 23:02. Plans for labor, pain management and were discussed with patient. Patient/family oriented to hospital policies and general routines including ID bracelet, bed and alarms, visiting hours, pain management, procedures, bathroom and other care routines, personal items, smoking policy, room service/diet and guest tray routines, infant security routines, and visiting hours. Patient/Family are encouraged to report perceived risks to care and to ask questions if they do not understand what they are told or what they should do. See OBIX for further documentation.
[2024-09-10] MEDS: LACTATED RINGERS 1,000 ML 125 ML IV CONT (23:46)
[2024-09-10] MEDS: AMPICILLIN 2 GM/NS 100 ML 2 GM/100 ML BAG IVPB (23:47)
[2024-09-11] VITALS (149 sets, daily range): BP systolic 93–165; BP diastolic 53–122; PULSE 67–214; RESP 16–18; TEMP 36.4–37.1; O2SAT 79–100
[2024-09-11 00:18] LABS: HIV 1/2 Ab P24 Ag Result Negative (Negative)
[2024-09-11] MEDS: OXYTOCIN 30 UNITS/NS 500 ML 30 UNITS/500 ML BAG IV CONT (00:20)
[2024-09-11 00:21] LABS: Syphilis IgG/IgM Antibody Negative (Negative)
--- NOTE | 2024-09-11 00:27 | PC.NURSE ---
0014- RN called Dr. Robin and notified of pts arrival to unit with complaints of LOF. RN reported positive ROM+ with clear fluid, SVE of 2/70%/-2, positive GBS status and FHTs and absence of contractions. Orders received to begin amp gbs protocol and Low dose pitocin.
[2024-09-11] MEDS: LACTATED RINGERS 1,000 ML 125 ML IV CONT ×2 (02:00→08:01)
--- NOTE | 2024-09-11 02:01 | WPDANESEPP ---
Anes - Eval Pre Procedure Procedure: labor epidural Date/Time: 09/11/24 02:01 Surgeon: fatuma Preop Diagnosis: pain during labor Pre Op Diagnosis: Leaking Patient Data Age: 34 Gender: F Height: 1.68 m Weight: 105 kg Last Vital Signs Pulse 83 09/11/24 01:30 BP 140/93 H 09/11/24 01:30 Pulse Ox 100 09/11/24 01:44 O2 Del Method Room Air 09/10/24 23:41 Allergies Allergy/AdvReac Type Severity Reaction Status Date / Time No Known Allergies Allergy Verified 09/10/24 09:59 Home Medications ?Medication ?Instructions ?Recorded ?Confirmed ?Type vitamin#30 30 mg iron-10 cap PO 01/25/24 09/10/24 History mg iron-folic acid 1 mg-omg3 capsule Laboratory Tests 09/10/24 23:22 WBC 13.1 H K/mm3 (4.5-10.0) RBC 4.29 M/mm3 (4.2-5.4) Hgb 12.6 g/dL (12.0-15.0) Hct 37.5 % (37.0-47.0) MCV 87.4 fl (80-100) MCH 29.4 pg (26-34) MCHC 33.6 g/dl (32-36) RDW 13.0 % (11.5-14.5) Plt Count 285 k/mm3 (150-375) MPV 9.7 fl (7.4-10.4) Immature Gran % (Auto) 0.7 H % (0-0.5) Neut % (Auto) 76.2 H % (45.5-73.1) Lymph % (Auto) 15.9 L % (18.3-44.2) [place] % (Auto) 6.1 % (2.6-8.5) Eos % (Auto) 0.9 % (0-4.4) Baso % (Auto) 0.2 % (0.2-1.2) Lymph # (Auto) 2.09 K/mm3 (0.9-3.2) [place] # (Auto) 0.8 H K/mm3 (0.1-0.6) Eos # (Auto) 0.1 K/mm3 (0-0.3) Baso # (Auto) 0.0 K/mm3 (0.0-0.1) Abs Immat Gran (auto) 0.09 H K/mm3 (0.00-0.031) Absolute Neuts (auto) 10.0 H K/mm3 (1.3-6.7) Absolute Nucleated RBC 0.000 K/mm3 (0.0-0.012) Nucleated RBC % 0.0 % (0.0-0.2) Syphilis IgG/IgM Ab Negative (Negative) HIV 1&2 Ab/P24 Ag 4thGn Negative (Negative) Blood Type A Positive Antibody Screen Negative Patient hx anesthesia problems: none Family hx anesthesia problems: none Results Review: All pre-operative results and documents have been reviewed as part of the pre-operative evaluation. [facility] Past Medical History Medical History (Updated 09/11/24 @ 02:01 by Michelle Bryant CRNA) Obesity (BMI 35.0-39.9 without comorbidity) IUP (intrauterine ), incidental Allergies Anxiety Ankle fracture, right Surgical History Surgical History Fracture of right ankle, lateral malleolus ORIF May 2019 Family History Family History Father Diabetes mellitus Heart disease Hypertension Mother Hypertension Cerebrovascular accident Grandparent Diabetes mellitus Hypertension Heart disease Social History Social History Smoking status: Former smoker Smoking end date: 05/28/22 Additional smoking assessment comments: Smoker since 2010; currently a vaper Alcohol intake: current Alcohol use details: Occasional Substance use: current Substance use type: marijuana Do You Feel Safe in your Home?: No Lack of Transportation: No Lack of Food: Never True Current Housing: I Have Housing Concerned About Future Housing: No Difficulty Paying Gas/Electric Bills: No Difficulty Paying for Meds: No Currently Unemployed: No Education: High School Diploma/GED Difficulty w/ Childcare or Family Care: No Living arrangements: with family Additional living arrangements comments: With 4 year old son Occupation/Education: unemployed Gender identity (if verbalized by the patient): Female Spiritual care concerns: No Exam Day of Procedure 09/11/24 02:01
[2024-09-11] MEDS: BENZONATATE 100 MG CAPSULE PO ×3 (03:17→17:16)
[2024-09-11] MEDS: AMPICILLIN 1 GM/NS 50 ML 1 GM/50 ML BAG IVPB ×2 (03:24→07:27)
[2024-09-11] MEDS: ONDANSETRON INJ 4 MG/2 ML VIAL IV PUSH (05:22)
[2024-09-11] MEDS: OXYTOCIN 30 UNITS/NS 500 ML 30 UNITS/500 ML BAG 125 UNITS IV CONT (08:54)
[2024-09-11] MEDS: ACETAMINOPHEN 325 MG TABLET 650 MG PO ×2 (11:05→19:48)
[2024-09-11] MEDS: DOCUSATE SODIUM 100 MG CAPSULE PO (17:16)
--- NOTE | 2024-09-11 18:14 | WPDANLDPN2 ---
Anes-Prog Note L&D Date/Time: 09/11/24 18:14 Neuro status: Neuro function grossly intact. Cardiovascular status: normal Respiratory status: normal Airway patency: baseline Mental status: baseline Post-Op hydration status: normal Vital Signs: Last Vital Signs Temp 37.1 C 09/11/24 15:15 Pulse 87 09/11/24 15:15 Resp 16 09/11/24 15:15 BP 128/87 09/11/24 15:15 Pulse Ox 100 09/11/24 15:15 O2 Del Method Room Air 09/11/24 15:15 Pain score (VAS): 0 I/O: Intake & Output 09/11/24 09/11/24 09/11/24 07:59 15:59 23:59 Intake Total 329.2 752.1 Output Total 500 150 Balance -170.8 602.1 Post-procedural complaints: none Patient feedback: Patient satisfied with anesthetic care.
[2024-09-11] MEDS: IBUPROFEN 600 MG TABLET PO (19:47)
--- NOTE | 2024-09-11 20:37 | PM.IMHP ---
H&P: HPI History of Present Illness Date/Time: 09/11/24 20:37 Chief Complaint: She is a 34 y/o at 37 6 presented with SROM clear. PNC significant for pos GBS. Review of Systems Review of Systems: All systems reviewed & are unremarkable except as noted in HPI and below Constitutional: Constitutional: Reports no additional constitutional complaints and Denies headache(s) Eyes: Eyes: Denies spots in vision ENT: Reports system reviewed and no additional complaints, except as documented and Denies headache(s) Cardiovascular: Cardiovascular: Denies chest pain and Denies dyspnea Respiratory: Respiratory: Denies dyspnea Gastrointestinal: Gastrointestinal: Reports no additional gastrointestinal complaints Genitourinary: Genitourinary: Reports amenorrhea Musculoskeletal: Musculoskeletal: Reports no additional musculoskeletal complaints Integumentary/Breasts: Skin/Breast: Denies breast mass and Denies rash Neurologic: Denies headache(s) Psychiatric: Psychiatric: Reports no additional psychiatric complaints [facility] Past Medical History Medical History (Updated 09/11/24 @ 21:45 by Ranulfo Skinner MD) Obesity (BMI 35.0-39.9 without comorbidity) IUP (intrauterine ), incidental Allergies Anxiety Ankle fracture, right Surgical History Surgical History Fracture of right ankle, lateral malleolus ORIF May 2019 Family History Family History Father Diabetes mellitus Heart disease Hypertension Mother Hypertension Cerebrovascular accident Grandparent Diabetes mellitus Hypertension Heart disease Social History Social History Smoking status: Former smoker Smoking end date: 05/28/22 Additional smoking assessment comments: Smoker since 2010; currently a vaper Alcohol intake: current Alcohol use details: Occasional Substance use: current Substance use type: marijuana Do You Feel Safe in your Home?: No Lack of Transportation: No Lack of Food: Never True Current Housing: I Have Housing Concerned About Future Housing: No Difficulty Paying Gas/Electric Bills: No Difficulty Paying for Meds: No Currently Unemployed: No Education: High School Diploma/GED Difficulty w/ Childcare or Family Care: No Living arrangements: with family Additional living arrangements comments: With 4 year old son Occupation/Education: unemployed Gender identity (if verbalized by the patient): Female Spiritual care concerns: No Meds Home Medications and Allergies Home Medications ?Medication ?Instructions ?Recorded ?Confirmed ?Type vitamin#30 30 mg iron-10 cap PO 01/25/24 09/10/24 History mg iron-folic acid 1 mg-omg3 capsule Allergies Allergy/AdvReac Type Severity Reaction Status Date / Time No Known Allergies Allergy Verified 09/10/24 09:59 Vital Signs Vital Signs - 24 hr 09/10/24 23:16 09/10/24 23:26 09/10/24 23:31 Temperature Pulse Rate Respiratory Rate Blood Pressure Pulse Oximetry 99 97 99 Oxygen Delivery 09/10/24 23:36 09/10/24 23:41 09/10/24 23:41 Temperature Pulse Rate Respiratory Rate Blood Pressure Pulse Oximetry 99 99 Oxygen Delivery Room Air 09/10/24 23:46 09/10/24 23:51 09/10/24 23:56 Temperature Pulse Rate Respiratory Rate Blood Pressure Pulse Oximetry 98 98 98 Oxygen Delivery 09/11/24 00:00 09/11/24 00:05 09/11/24 00:10 Temperature Pulse Rate Respiratory Rate Blood Pressure Pulse Oximetry 100 100 100 Oxygen Delivery 09/11/24 00:14 09/11/24 00:19 09/11/24 00:24 Temperature Pulse Rate Respiratory Rate Blood Pressure Pulse Oximetry 100 100 100 Oxygen Delivery 09/11/24 00:29 09/11/24 00:31 09/11/24 00:34 Temperature Pulse Rate 83 Respiratory Rate Blood Pressure 116/96 H Pulse Oximetry 100 100 Oxygen Delivery 09/11/24 00:39 09/11/24 00:44 09/11/24 00:49 Temperature Pulse Rate Respiratory Rate Blood Pressure Pulse Oximetry 100 100 100 Oxygen Delivery 09/11/24 00:54 09/11/24 00:59 09/11/24 01:00 Temperature Pulse Rate 68 Respiratory Rate Blood Pressure 137/87 Pulse Oximetry 99 98 Oxygen Delivery 09/11/24 01:04 09/11/24 01:09 09/11/24 01:14 Temperature Pulse Rate Respiratory Rate Blood Pressure Pulse Oximetry 99 100 100 Oxygen Delivery 09/11/24 01:19 09/11/24 01:24 09/11/24 01:29 Temperature Pulse Rate Respiratory Rate Blood Pressure Pulse Oximetry 100 100 100 Oxygen Delivery 09/11/24 01:30 09/11/24 01:34 09/11/24 01:39 Temperature Pulse Rate 83 Respiratory Rate Blood Pressure 140/93 H Pulse Oximetry 100 100 Oxygen Delivery 09/11/24 01:44 09/11/24 02:02 09/11/24 02:06 Temperature Pulse Rate 94 Respiratory Rate Blood Pressure 139/106 H Pulse Oximetry 100 100 Oxygen Delivery 09/11/24 02:07 09/11/24 02:08 09/11/24 02:10 Temperature Pulse Rate 92 88 Respiratory Rate Blood Pressure 152/78 H 147/80 H Pulse Oximetry 100 Oxygen Delivery 09/11/24 02:12 09/11/24 02:13 09/11/24 02:15 Temperature Pulse Rate 92 101 H Respiratory Rate Blood Pressure 135/82 112/83 Pulse Oximetry 100 Oxygen Delivery 09/11/24 02:17 09/11/24 02:18 09/11/24 02:20 Temperature Pulse Rate 104 H 107 H Respiratory Rate Blood Pressure 136/84 110/77 Pulse Oximetry 100 Oxygen Delivery 09/11/24 02:22 09/11/24 02:27 09/11/24 02:28 Temperature Pulse Rate 106 H 109 H Respiratory Rate Blood Pressure 136/101 H 144/96 H Pulse Oximetry 100 100 Oxygen Delivery 09/11/24 02:30 09/11/24 02:32 09/11/24 02:33 Temperature Pulse Rate 103 H 99 Respiratory Rate Blood Pressure 149/87 H 149/122 H Pulse Oximetry 100 Oxygen Delivery 09/11/24 02:35 09/11/24 02:37 09/11/24 02:38 Temperature Pulse Rate 97 113 H Respiratory Rate Blood Pressure 146/84 H 93/78 L Pulse Oximetry 100 Oxygen Delivery 09/11/24 02:40 09/11/24 02:42 09/11/24 02:43 Temperature Pulse Rate 103 H 98 Respiratory Rate Blood Pressure 142/95 H 138/83 Pulse Oximetry 99 Oxygen Delivery 09/11/24 02:45 09/11/24 02:47 09/11/24 02:52 Temperature Pulse Rate 94 Respiratory Rate Blood Pressure 139/94 H Pulse Oximetry 100 100 Oxygen Delivery 09/11/24 02:57 09/11/24 03:02 09/11/24 03:07 Temperature Pulse Rate Respiratory Rate Blood Pressure Pulse Oximetry 100 100 100 Oxygen Delivery 09/11/24 03:12 09/11/24 03:15 09/11/24 03:17 Temperature Pulse Rate 96 Respiratory Rate Blood Pressure 117/66 Pulse Oximetry 100 100 Oxygen Delivery 09/11/24 03:22 09/11/24 03:27 09/11/24 03:30 Temperature Pulse Rate 97 Respiratory Rate Blood Pressure 120/73 Pulse Oximetry 100 100 Oxygen Delivery 09/11/24 03:32 09/11/24 03:37 09/11/24 03:42 Temperature Pulse Rate Respiratory Rate Blood Pressure Pulse Oximetry 100 99 100 Oxygen Delivery 09/11/24 03:46 09/11/24 03:47 09/11/24 03:52 Temperature Pulse Rate 92 Respiratory Rate Blood Pressure 165/91 H Pulse Oximetry 100 100 Oxygen Delivery 09/11/24 03:57 09/11/24 04:00 09/11/24 04:01 Temperature 98 F Pulse Rate 100 Respiratory Rate Blood Pressure 124/75 Pulse Oximetry 100 Oxygen Delivery 09/11/24 04:02 09/11/24 04:07 09/11/24 04:09 Temperature Pulse Rate Respiratory Rate Blood Pressure Pulse Oximetry 100 99 98 Oxygen Delivery 09/11/24 04:14 09/11/24 04:15 09/11/24 04:19 Temperature Pulse Rate 103 H Respiratory Rate Blood Pressure 125/78 Pulse Oximetry 100 99 Oxygen Delivery 09/11/24 04:24 09/11/24 04:29 09/11/24 04:30 Temperature Pulse Rate 108 H Respiratory Rate Blood Pressure 129/80 Pulse Oximetry 96 97 Oxygen Delivery 09/11/24 04:34 09/11/24 04:39 09/11/24 04:44 Temperature Pulse Rate Respiratory Rate Blood Pressure Pulse Oximetry 98 100 100 Oxygen Delivery 09/11/24 04:45 09/11/24 04:49 09/11/24 04:54 Temperature Pulse Rate 100 Respiratory Rate Blood Pressure 106/63 Pulse Oximetry 98 98 Oxygen Delivery 09/11/24 04:59 09/11/24 05:00 09/11/24 05:04 Temperature Pulse Rate 91 Respiratory Rate Blood Pressure 106/55 L Pulse Oximetry 98 98 Oxygen Delivery 09/11/24 05:09 09/11/24 05:14 09/11/24 05:15 Temperature Pulse Rate 89 Respiratory Rate Blood Pressure 109/59 L Pulse Oximetry 98 99 Oxygen Delivery 09/11/24 05:19 09/11/24 05:24 09/11/24 05:29 Temperature Pulse Rate Respiratory Rate Blood Pressure Pulse Oximetry 100 100 100 Oxygen Delivery 09/11/24 05:30 09/11/24 05:34 09/11/24 05:39 Temperature Pulse Rate 84 Respiratory Rate Blood Pressure 116/69 Pulse Oximetry 99 99 Oxygen Delivery 09/11/24 05:44 09/11/24 05:45 09/11/24 05:49 Temperature Pulse Rate 93 Respiratory Rate Blood Pressure 110/69 Pulse Oximetry 99 99 Oxygen Delivery 09/11/24 05:54 09/11/24 05:59 09/11/24 06:04 Temperature Pulse Rate Respiratory Rate Blood Pressure Pulse Oximetry 99 100 100 Oxygen Delivery 09/11/24 06:07 09/11/24 06:09 09/11/24 06:14 Temperature 97.6 F Pulse Rate Respiratory Rate Blood Pressure Pulse Oximetry 100 100 Oxygen Delivery 09/11/24 06:15 09/11/24 06:19 09/11/24 06:24 Temperature Pulse Rate 214 H Respiratory Rate Blood Pressure 119/88 Pulse Oximetry 100 100 Oxygen Delivery 09/11/24 06:29 09/11/24 06:30 09/11/24 06:34 Temperature Pulse Rate 87 Respiratory Rate Blood Pressure 121/91 H Pulse Oximetry 100 100 Oxygen Delivery 09/11/24 06:39 09/11/24 06:44 09/11/24 06:45 Temperature Pulse Rate 146 H Respiratory Rate Blood Pressure 103/53 L Pulse Oximetry 100 100 Oxygen Delivery 09/11/24 06:49 09/11/24 06:54 09/11/24 06:59 Temperature Pulse Rate Respiratory Rate Blood Pressure Pulse Oximetry 100 100 100 Oxygen Delivery 09/11/24 07:00 09/11/24 07:04 09/11/24 07:09 Temperature Pulse Rate 78 Respiratory Rate Blood Pressure 106/70 Pulse Oximetry 100 100 Oxygen Delivery 09/11/24 07:14 09/11/24 07:15 09/11/24 07:19 Temperature Pulse Rate 90 Respiratory Rate Blood Pressure 98/54 L Pulse Oximetry 100 100 Oxygen Delivery 09/11/24 07:24 09/11/24 07:29 09/11/24 07:34 Temperature Pulse Rate Respiratory Rate Blood Pressure Pulse Oximetry 100 100 100 Oxygen Delivery 09/11/24 07:39 09/11/24 07:44 09/11/24 07:45 Temperature Pulse Rate 88 Respiratory Rate Blood Pressure 112/68 Pulse Oximetry 100 99 Oxygen Delivery 09/11/24 07:49 09/11/24 07:54 09/11/24 07:59 Temperature Pulse Rate Respiratory Rate Blood Pressure Pulse Oximetry 100 100 100 Oxygen Delivery 09/11/24 08:00 09/11/24 08:01 09/11/24 08:04 Temperature 98.8 F Pulse Rate 92 Respiratory Rate Blood Pressure 108/64 Pulse Oximetry 100 Oxygen Delivery 09/11/24 08:09 09/11/24 08:14 09/11/24 08:19 Temperature Pulse Rate Respiratory Rate Blood Pressure Pulse Oximetry 100 79 L 100 Oxygen Delivery 09/11/24 08:35 09/11/24 08:45 09/11/24 09:02 Temperature 98.8 F Pulse Rate 108 H 154 H 97 Respiratory Rate Blood Pressure 126/56 L 140/114 H 128/78 Pulse Oximetry Oxygen Delivery 09/11/24 09:15 09/11/24 09:45 09/11/24 10:00 Temperature Pulse Rate 102 H 87 101 H Respiratory Rate Blood Pressure 132/94 H 130/69 128/53 L Pulse Oximetry Oxygen Delivery 09/11/24 10:16 09/11/24 10:30 09/11/24 15:15 Temperature Pulse Rate 145 H 103 H Respiratory Rate Blood Pressure 110/69 122/90 Pulse Oximetry Oxygen Delivery Room Air 09/11/24 15:15 09/11/24 19:45 Temperature 98.7 F 98.6 F Pulse Rate 87 67 Respiratory Rate 16 16 Blood Pressure 128/87 136/99 H Pulse Oximetry 100 100 Oxygen Delivery Exam Const: General: no acute distress Eyes: General: appearance normal, both eyes and all related structures Resp: Effort & Inspection: normal respiratory effort Cardio: Rate: regular rate GI: Other: Gravid no fundal tenderness no right upper quadrant pain Skin: General skin exam: no rashes or lesions noted Neuro: Cognition (Neuro): normal cognition Extrem: General: normal to inspection Psych: Mental Status: mental status grossly normal H&P: Results Labs Labs: Short CBC 09/10/24 Range/Units 23:22 WBC 13.1 H (4.5-10.0) K/mm3 Hgb 12.6 (12.0-15.0) g/dL Hct 37.5 (37.0-47.0) % Plt Count 285 (150-375) k/mm3 Assessment and Plan Assessment and plan (1) Spontaneous rupture of membranes: Status: Acute Assessment and Plan: 1. Admit 2. Ampicillin for GBS prophylaxis. 3. Expectant management, pitocin augmentation if needed.
--- NOTE | 2024-09-11 20:37 | PM.OBPRVD ---
OB - Vaginal Delivery Note Procedure Delivery date: 09/11/24 Events: Positive Group B Strep (GBS) Delivery augmentation: Pitocin Delivery monitor: External FHT and Internal Uterine Route of delivery: Episiotomy description: None Laceration Description: None Anesthesia type: Epidural Disposition: Floor Complications: No immediate complications Narrative: She presented to L and D with c/o leaking. She had confirmation of rupture of membranes. She had epidural placed on request. Pitocin was was used for augmentation. She has IUPC placed. She progressed to active labor. She dilated to complete and delivered a male infant over intact perineum. The anterior shoulder was delivered with gentle traction and nose and mouth suctioned at perineum. The rest of was delivered. was placed on maternal abdomen vigorously crying. Delayed cord clamping for a minute and then cord was doubly clamped and cut. Cord gases and cord blood was obtained. Pitocin started. Placenta delivered spontaneously and intact. No lacerations. She tolerated procedure well. [place] Baby Date of : 09/11/24 Time of : 08:19 Gestational Age by Date: 37 gender: Male presentation: vertex position: Right Occiput Anterior Placenta delivery description: Spontaneous Cord Vessel Description: 3 Vessels and Delayed Cord Clamping score one minute: 8 score five minutes: 9
--- NOTE | 2024-09-11 20:37 | PM.OBDSVD ---
DS: Admitting Diagnosis Discharge Date 09/12/24 Admitting Diagnosis Spontaneous rupture of membranes. DS: Discharge Diagnosis Discharge Diagnosis (1) Vaginal delivery: Code(s): O80 - Encounter for full-term uncomplicated delivery Status: Acute OB - DS: Summary Hospital Course Hospital Course: She was admitted for spontaneous rupture of membranes. She had an uncomplicated vaginal delivery. She did well . Baby did well . She had a few mildly elevated blood pressures after delivery. They did improve on day 1. PIH labs were normal. She requested discharge to home on PPD 1. Discharge and PIH precautions discussed. OB Procedures : Ultrasound OB Procedures Intrapartum: Spontaneous Vag Delivery OB Procedures: : None Peripartum Data Infant Delivery Method: Natural Vaginal Laceration Description: None Episiotomy description: None complications: none Status at Discharge Functional status at discharge: independent ambulation Overall status at discharge: other (Recovery) Time Spent with Patient Time attestation: Total time spent providing and/or coordinating discharge services: Time spent: Less than 30 minutes Exam Const: General: cooperative Orientation/consciousness: oriented to person, oriented to place and oriented to time HENMT: Face/Nose/Sinus: Normal external nose present Eyes: General: appearance normal, both eyes and all related structures Resp: Effort & Inspection: normal respiratory effort GI: Inspection: normal to inspection Skin: General skin exam: normal color Neuro: General: oriented to person, oriented to place and oriented to time Extrem: General: normal to inspection and no calf tenderness Psych: Appearance: grossly normal Mental Status: mental status grossly normal DS: Data Data Completed and Pending Labs on day of discharge: Labs from last 24 hours 09/10/24 23:22 WBC 13.1 H RBC 4.29 Hgb 12.6 Hct 37.5 MCV 87.4 MCH 29.4 MCHC 33.6 RDW 13.0 Plt Count 285 MPV 9.7 Immature Gran % (Auto) 0.7 H Neut % (Auto) 76.2 H Lymph % (Auto) 15.9 L [place] % (Auto) 6.1 Eos % (Auto) 0.9 Baso % (Auto) 0.2 Lymph # (Auto) 2.09 [place] # (Auto) 0.8 H Eos # (Auto) 0.1 Baso # (Auto) 0.0 Abs Immat Gran (auto) 0.09 H Absolute Neuts (auto) 10.0 H Absolute Nucleated RBC 0.000 Nucleated RBC % 0.0 Syphilis IgG/IgM Ab Negative HIV 1&2 Ab/P24 Ag 4thGn Negative Blood Type A Positive Antibody Screen Negative Discharge Plan Discharge Attending physician on discharge: Ranulfo Skinner Consulting providers: Michelle Bryant Discharging Clinician: Ranulfo Skinner Patient Disposition: Home Activity: may shower and pelvic rest Diet: regular Patient Instructions: Antibiotic Form Patient Language: Syriac Stand Alone Forms: General Discharge Information Follow-up/Referrals: Ranulfo Skinner MD [Physician] - 4 Weeks (Call for appointment) Discharge Medications: No Action PNV #[id number] 30 mg iron-10 mg iron-1 mg capsule PO Date of admission: 09/10/24 23:02 Primary Care Provider: UNKNOWN,DOCTOR Admitting Provider: Ranulfo Skinner Attending physician on admission: Ranulfo Skinner Condition: Stable
[2024-09-12 05:32] LABS: Hematocrit 38.6 % (37.0-47.0); Hemoglobin 11.9 g/dL (12.0-15.0)
[2024-09-12 07:10] VITALS: BP 123/86; PULSE 74; RESP 16; TEMP 36.6; O2SAT 99
[2024-09-12 08:00] VITALS: PULSE 74; RESP 16; O2SAT 99
[2024-09-12] MEDS: BENZONATATE 100 MG CAPSULE PO (08:35)
[2024-09-12] MEDS: MULTIVIT/MIN/PREN/FOL AC/IRON TABLET 1 TAB PO (08:35)
[2024-09-12 09:13] LABS: Hematocrit 38.2 % (37.0-47.0); Hemoglobin 12.3 g/dL (12.0-15.0); Mean Corpuscular HGB Conc 32.2 g/dl (32-36); Mean Corpuscular Hemoglobin 29.2 pg (26-34); Mean Corpuscular Volume 90.7 fl (80-100); Mean Platelet Volume 9.6 fl (7.4-10.4); Platelet Count Result 236 k/mm3 (150-375); Red Blood Count 4.21 M/mm3 (4.2-5.4); Red Cell Distribution Width 13.2 % (11.5-14.5); White Blood Count 11.6 K/mm3 (4.5-10.0)
[2024-09-12 09:21] LABS: Alanine Aminotransferase 24 U/L (6-35); Albumin Level 3.6 g/dL (3.5-5.1); Alkaline Phosphatase 104 U/L (38-126); Anion Gap 8 mmol/L (4-12); Aspartate Amino Transferase 32 U/L (14-36); Bilirubin,Total 0.5 mg/dL (0.2-1.3); Blood Urea Nitrogen 6 mg/dL (7-17); Calcium 9.1 mg/dL (8.4-10.2); Carbon Dioxide 26 mmol/L (22-30); Chloride 103 mmol/L (98-107); Estimated CRCL calculation 134 ml/min; Estimated Glomerular Filt Rate > 60; Glucose 88 mg/dL (65-110); Sodium 137 mmol/L (137-145)
[2024-09-12 09:22] LABS: Uric Acid 3.7 mg/dL (2.5-7.5)
--- NOTE | 2024-09-12 10:38 | P.PNOB_ITS ---
OB - PN: Subj Subjective Date/time seen: 09/12/24 10:38 Interval history: She denies headache scotomata or RUQ. She would like to go home today. Lochia decreasing. Patient comments: pain well controlled, tolerating diet and other (Decreasing lochia.) baby status: doing well and nursing well [place] feeding status: exclusively breast feeding OB - PN: Obj Data Labs 09/12/24 09:03 09/12/24 09:03 Labs: Laboratory Results - last 24 hr 09/12/24 09/12/24 04: 09:03 WBC 11.6 H RBC 4.21 Hgb 11.9 L 12.3 Hct 38.6 38.2 MCV 90.7 MCH 29.2 MCHC 32.2 RDW 13.2 Plt Count 236 MPV 9.6 Sodium 137 Potassium 4.0 Chloride 103 Carbon Dioxide 26 Anion Gap 8 BUN 6 L Creatinine 0.63 L Estim Creat Clear Calc 134 Estimated GFR > 60 Glucose 88 Uric Acid 3.7 Calcium 9.1 Total Bilirubin 0.5 AST 32 ALT 24 Alkaline Phosphatase 104 Total Protein 7.0 Albumin 3.6 OB - PN A/P Assessment and Plan (1) Vaginal delivery: Code(s): O80 - Encounter for full-term uncomplicated delivery Status: Acute Assessment and Plan: Doing well. Isolated elevated blood pressures, non severe, no PIH symptoms. Will monitor more blood pressures, PIH labs, if labs normal and blood pressure improve then will allow discharge today. Routine care. Plan day: 1 Plan: routine care Comments: Patient doing well. Time Spent With Patient Time: Total time spent is greater than 50% in coordination of care (as documented) at patient's floor/unit and/or counseling patient: Exam 2 Psych: Affect: normal affect Other: Abd: fundus firm below umbilicus, nontender Perineum: healing Ext: nontender
[2024-09-12 12:07] VITALS: BP 121/81; PULSE 67; RESP 18; TEMP 37.1; O2SAT 100
--- NOTE | 2024-09-12 14:02 | PC.NURSE ---
0830 CLC in room, mother had called out needing assistance waking baby up to breastfeed. Baby had circumcision done prior and was not interested at this time. Mother had latched baby on her own but baby would not suck, mother to put baby skin to skin, watch for feeding cues and call out if needing assistance. Reported to Primary RN. 0910 CLC in room, mother had attempted to latch baby after he was showing some feeding cues but still had refused to maintain latch and suck. Mother is able to hand express many large drops of colostrum into baby's mouth, mother would like to now use her hand breast pump and then pace bottle feed baby for this feeding since baby is sleepy from his circumcision. Mother also requested an insurance breast pump, RN to complete the paper work and go over the breast pump later today. Reported to Primary RN. 1245 Consulted with mother concerning needs and she shared her ability to independently latch infant optimally without pain. Mother is feeding appropriately for growth of and understands stimulating to eat if needed. has had appropriate feedings in the last 24 hours meets the outcomes for weight, output, blood sugar and jaundice at this time. Reinforced understanding of milk production, transition of milk, signs of adequate intake, transition of stool, prevention/relief of engorgement, plugged ducts, mastitis, responsive watching for feeding cues, the different methods of stimulating infant to breastfeed 1-3 hours after the start of the last feeding, community resources, and when to call a provider using the resource of the feeding sheet along with the mom and baby guide. Mother voiced understanding of the information shared, is confident to continue effectively her at home, when to call for assistance, denies any additional assistance or education at this time. Insurance breast pump provided due to mother's request. Instructions given on cleaning, care, usage, that there should be no pain, pumping schedule for milk production, collection, and storage of human milk. Patient was assessed for correct placement, flange size, to pump for comfort and nipple stretching/stimulation for adequate milk production every 3 hours (8 times in 24 hours) 1-2 times at night. Parents are encouraged to record the pumping schedule on the feeding sheet.?Mother voiced understanding of the education shared along with mom/baby guide and the pump measurement, flange fit handout for additional resource information. Reported to the Primary RN.
[2024-09-13 10:00] VITALS: BP 125/92; PULSE 70; RESP 18; TEMP 37.1; O2SAT 99
== END 2024-09-12 13:40 | disposition home or self-care (01) | DRG 807 ==
LOC: ANHLDR 23:17 → ANHOB2 09-11 10:51
PROVIDERS: Admitting Provider Student in an Organized Health Care Education/Training Program; Visit Provider Obstetrics & Gynecology
DX: O99.824 Streptococcus B carrier state complicating childbirth (principal); Z37.0 Single live birth; O99.334 Smoking (tobacco) complicating childbirth; F17.290 Nicotine dependence, other tobacco product, uncomplicated; Z3A.37 37 weeks gestation of pregnancy
CPT/HCPCS: 36415; 80053; 84550; 85014; 85018; 85025; 85027; 86593; 86703; 86850; 86900; 86901; A9270; G0432; J0290; J2405; J2590; J2795; J7120